=== PATIENT | female | born 1965 | race Caucasian/White ===

== ENCOUNTER 2021-04-10 08:06 | Emergency (ER) | payer OTHER ==
--- NOTE | 2021-04-10 08:37 | ERPHSYRPT ---
- History of Present Illness Source: patient Exam Limitations: no limitations Patient Subjective Stated Complaint: pt here for pain to right shoulder after falling on ice 10 days ago, she states her rom is not getting better, Triage Nursing Assessment: pt alert, walked in, resp easy, face mask in place, able to undress self, skin w/s/p, no bruising or swelling noted, strong radial pulse Physician History: 56 yo wf fell on ice 10 days ago injuring her R shoulder. Pt is R handed and denies other/previous injury. Occurred: other (10 days ago) Method of Injury: fell Quality: constant, aching Severity of Pain-Max: moderate Severity of Pain-Current: mild Extremities Pain Location: shoulder: right Modifying Factors: Improves With: movement Associated Symptoms: none Allergies/Adverse Reactions: No Known Drug Allergies Allergy (Unverified 04/10/21 08:27) Home Medications: Trazodone HCl 50 mg [Desyrel 50 mg] 1 ea DAILY 04/10/21 [History] Hx Tetanus, Diphtheria Vaccination/Date Given: No Hx Influenza Vaccination/Date Given: Yes Hx Pneumococcal Vaccination/Date Given: No Immunizations Up to Date: Yes Travel Risk - International Travel Have you traveled outside of the country in past 3 weeks: No - Coronavirus Screening Are you exhibiting any of the following symptoms?: No Close contact with a COVID-19 positive Pt in past 14-21 Days: No - Vaccine Status Have you recieved a Covid-19 vaccination: Yes Food Service: [employer] - Vaccination Dates Date of 2cond Vaccination (if applicable): 2020 - Review of Systems Constitutional: No Symptoms Eyes: No Symptoms Ears, Nose, & Throat: No Symptoms Respiratory: No Symptoms Cardiac: No Symptoms Abdominal/Gastrointestinal: No Symptoms Genitourinary Symptoms: No Symptoms Skin: No Symptoms, Skin Lesions Psychological: No Symptoms Endocrine: No Symptoms Hematologic/Lymphatic: No Symptoms Immunological/Allergic: No Symptoms - Past Medical History Pertinent Past Medical History: Yes Musculoskeletal History: Fibromyalgia Psycho-Social History: Anxiety - Past Surgical History Past Surgical History: Yes Female Surgical History: Hysterectomy - Social History Smoking Status: Never smoker Exposure to second hand smoke: No Drug Use: none Patient Lives Alone: No Significant Family History: no pertinent family hx - Female History Hx Last Menstrual Period: hyster Hx Now: No - Nursing Vital Signs Nursing Vital Signs: Initial Vital Signs Temperature 97.2 F 04/10/21 08:20 Pulse Rate 99 H 04/10/21 08:20 Respiratory Rate 18 04/10/21 08:20 Blood Pressure 147/83 04/10/21 08:20 O2 Sat by Pulse Oximetry 98 04/10/21 08:20 Pain Scale Pain Intensity 3 Hypertensive - Physical Exam General Appearance: no apparent distress Eyes, Ears, Nose, Throat Exam: normal ENT inspection, TMs normal, pharynx normal, moist mucous membranes Neck Exam: normal inspection, non-tender (C-spine NTTP) Cardiovascular/Respiratory Exam: normal breath sounds, regular rate/rhythm, heart sounds normal Abdominal Exam: non-tender, soft Back Exam: normal inspection, normal range of motion, No CVA tenderness, No vertebral tenderness Shoulder Exam: pain (R shoulder moderate diffuse TTP/Pain w external rotation and abduction/Good radial pulse, distal sensation, and capillary return) Elbow/Forearm Exam: normal inspection Wrist Exam: normal inspection Hand Exam: normal inspection Neuro/Tendon Exam: normal sensation, normal motor functions, normal tendon functions, responds to pain, no evidence tendon injury, No motor deficit, No sensory deficit Mental Status Exam: alert, oriented x 3, cooperative Skin Exam: normal color, warm, dry SpO2 Interpretation: normal SpO2: 98 O2 Delivery: Room Air - Course Nursing assessment & vital signs reviewed: Yes - Radiology Exams Shoulder X-ray Interpretation: Discussed w/ radiologist (No fx or dislocation) Ordered Tests: Active Orders 24 hr Category Date Time Status SHOULDER Stat Exams 04/10/21 08:19 Completed - Progress Progress Note: 04/10/21 09:45 Pt refuses pain meds at this time Pt alerted that if pain continues, she will need to have an MRI to evaluate the RC Counseled pt/family regarding: diagnosis, need for follow-up, rad results - Departure Departure Disposition: Home Clinical Impression: Shoulder contusion Condition: Stable Critical Care Time: No Referrals: DOCTOR,NO FAMILY [Primary Care Provider] - Follow up/PCP as directed Instructions: Shoulder Tendinopathy (DC), Shoulder Sprain (DC) Additional Instructions: Heat Motrin/Tylenol for pain Follow up with your family MD for continued pain MRI in future if pain continues
--- NOTE | 2021-04-10 09:34 | XRAY ---
Indication: Pain following fall March 30, 2021. Comparison: None 3 view right shoulder demonstrates osteopenia and moderate dextrorotoscoliosis of visualized spine. No other bony, articular, or soft tissue abnormalities.
[2021-04-10 10:03] VITALS: BP 123/77; PULSE 70
[2021-04-10 12:01] VITALS: O2SAT 98
== END 2021-04-10 10:03 | disposition home or self-care (01) ==
LOC: ED 08:06
DX: S40.011A Contusion of right shoulder, initial encounter (principal); W00.0XXA Fall on same level due to ice and snow, initial encounter
CPT/HCPCS: 73030; 99283